=== PATIENT | female | born 1965 | race Caucasian/White ===

== ENCOUNTER 2017-08-28 02:09 | Emergency (ER) | payer BC ==
[~2017-08-28] VITALS: Ht 170.2 cm; Wt 85.7 kg
[~2017-08-28 02:09] MED LIST changes: -PRED20
[2017-08-28] MEDS ORDERED: PRED20 (22:16)
== END 2017-08-28 03:45 | disposition home or self-care (01) ==
LOC: ER 02:09
DX: M25.561 Pain in right knee (principal); I10 Essential (primary) hypertension; F17.200 Nicotine dependence, unspecified, uncomplicated; Z88.5 Allergy status to narcotic agent; Z79.899 Other long term (current) drug therapy
CPT/HCPCS: 73562-RT; 96372; 99283; J1885

== ENCOUNTER → 2017-08-28 | Outpatient (CLI) | payer BC ==
[~2017-08-28] MED LIST: ALBU90OI6 INH; AMOX500 PO; AZIT250 PO; CHOL10002 PO; HYDACE5 PO; HYDCHL12.5 PO; IBUP400 PO; PANT40 PO; PRED10 PO; PRED20; Percocet 5-3251 EACH PO; RXTRAM50 PO; SPIHYD PO; SUCR1 PO; TRAM50 PO; Valium5 MG PO
[2017-08-28 16:41] LABS: BASOPHILS ABSOLUTE AUTO 0.06 K/mm3 (0.00-0.23); BASOPHILS PERCENT AUTO 1 % (0-2); EOSINOPHILS ABSOLUTE AUTO 0.18 K/mm3 (0.00-0.68); EOSINOPHILS PERCENT AUTO 1 % (0-6); Hematocrit 42.5 % (33.0-51.0); Hemoglobin 14.2 g/dL (11.5-16.0); IMMATURE GRAN ABSOLUTE AUTO 0.04 K/mm3 (0.00-0.10); IMMATURE GRAN PERCENT AUTO 0 % (0-1); LYMPHOCYTES ABSOLUTE AUTO 3.48 K/mm3 (0.84-5.20); LYMPHOCYTES PERCENT AUTO 27 % (21-46); MONOCYTES ABSOLUTE AUTO 1.12 K/mm3 (0.16-1.47); MONOCYTES PERCENT AUTO 9 % (4-13); Mean Corpuscular HGB 28.7 pg (26.0-34.0); Mean Corpuscular HGB Conc 33.4 g/dL (31.5-36.5); Mean Corpuscular Volume 86 fL (80-100); Mean Platelet Volume 10.3 fL (9.1-12.4); NEUTROPHILS ABSOLUTE AUTO 7.81 K/mm3 (1.96-9.15); NEUTROPHILS PERCENT AUTO 62 % (41-73); Platelet Count 384 K/mm3 (150-400); RDW Standard Deviation 43.8 fL (35.1-46.3); Red Blood Cell Count 4.94 M/mm3 (3.80-5.20); White Blood Cell Count 12.69 K/mm3 (4.00-11.30)
== END ==
LOC: LAB SHORT 16:27 → LAB 16:27
PROVIDERS: Nurse Practitioner
DX: M25.561 Pain in right knee (principal); R22.2 Localized swelling, mass and lump, trunk
CPT/HCPCS: 84550; 85025